=== PATIENT | female | born 1940 | race Caucasian/White ===

== ENCOUNTER 2016-12-16 21:15 | Emergency (ER) | payer OTHER ==
[~2016-12-16 21:15] MED LIST: ADVAIR250 INH; ALLEGRA PO; ALTA2.5 PO; AMLODIPINE PO; ANTIBIOTIC CREAM TOP; ANTIBIOTIC EYE OP; ASA5GR PO; ASAB PO; AUG BETAMET0.053 TOP; B12250T PO; BACDS PO; BENTYL10 PO; BUM1 PO; BUM2 PO; C5 PO; CARASPUDL PO; CYANO1000T PO; DULERA 200 MCG/13 GM INH; EFFIENT10 PO; FESO4 PO; FLONASE NAS; FOLIC PO; GABAPEN; GLUCPH PO; HCTZ25B PO; IBU800 PO; IODOSORB TOP; KDUR20 PO; KLOR CON; KLOR-CON M2020 MEQ PO; L20 PO; L40 PO; LIDODERM T; LIPITOR20 PO; LIPITOR40 PO; LOP50 PO; LOTREL1 CA5 PO; MCZ25 PO; MEDROLPAK4 PO; MOBIC7.5 PO; MULTI-VIT HP PO; NEUR300 PO; NEUR400 PO; NEUR600 PO; NITROSPRAY SL; NITROSTAT0.4 MG SL; Neurontin PO; PLAVIX PO; PLAVIX300 MG PO; PRAV10 PO; PRAVAC PO; PRILO PO; PRILOSEC40 MG PO; PROAIR HFA INH; PROTONIX DR PO; PROTONIX PO; PROVHFA INH; PYR100B PO; REQUIP1 PO; REQUIP3 PO; ROB1T PO; ROPINIROLE; SPIRIVA INH; STOMACH MED PO; T PO; T200 PO; T3 PO; TOPXL50 PO; TRICOR48 PO; UNISOM25 MG OR; VITAMIN B-121000 MC1 SL; VOLTAREN1 % TOP; XARELTO20 MG PO; ZITH250 PO; [UNRECOGNIZED DRUG - CODE] IV
[2016-12-16 21:48] LABS: BASOPHILS 0.3 %; BASOPHILS ABSOLUTE 0.02 10/3/uL (0.0-0.16); EOSINOPHILS 1.4 %; HEMATOCRIT 41.8 % (36.0-48.0); HEMOGLOBIN 13.7 g/dL (12.0-16.0); IMMATURE GRANULOCYTES 0.1 %; IMMATURE GRANULOCYTES ABSOLUTE 0.01 10/3/uL (0.0-0.11); LYMPHOCYTES 33.3 %; LYMPHOCYTES ABSOLUTE 2.39 10/3/uL (0.67-4.30); MEAN CORPUS HGB CONC 32.8 g/dL (32.0-36.0); MEAN CORPUSCULAR HEMOGLOB 30.8 pg (26.0-34.0); MEAN CORPUSCULAR VOLUME 93.9 fL (80-100); MEAN PLATELET VOLUME 9.7 fL (9.2-13.0); MONOCYTES 8.8 %; MONOCYTES ABSOLUTE 0.63 10/3/uL (0.21-1.20); NEUTROPHILS 56.1 %; NEUTROPHILS ABSOLUTE 4.03 10/3/uL (2.02-8.40); PLATELET COUNT 236 10/3/uL (150-400); RBC DISTRIBUTION WIDTH 13.3 % (12.0-16.0); RED CELL COUNT 4.45 10/6/uL (4.0-5.6); WHITE BLOOD CELLS 7.2 10/3/uL (4.5-10.5)
[2016-12-16 21:55] LABS: MANUAL DIFF NO %
[2016-12-16 22:05] LABS: BUN (BLOOD UREA NITROGEN) 16 MG/DL (6-23); CHEST PAIN PROFILE TAT 0 Hrs 23 Mins; CHLORIDE, SERUM 104 MMOL/L (96-112); CO2 (CARBON DIOXIDE) 30 MMOL/L (24-34); CREATININE 0.94 MG/DL (0.55-1.02); GFR AFRICAN AMERICAN 69 ML/MIN (>=60); GFR NON AFRICAN AMERICAN 59 ML/MIN (>=60); POTASSIUM, SERUM 3.3 MMOL/L (3.5-5.3); SODIUM, SERUM 145 MMOL/L (135-148); TROPONIN I <0.02 NG/ML (<0.05)
[2016-12-16 22:06] LABS: GLUCOSE, SERUM 114 MG/DL (60-99)
[2016-12-16 22:07] LABS: INTERNATIONAL NORMAL RATI 1.1 UNITS (-); PARTIAL THROMBO TIME 29.7 SEC (22.5-37.2); PROTIME (NOT ORD) 14.1 SEC (12.0-14.5)
== END 2016-12-16 23:27 | disposition home or self-care (01) ==
LOC: ER 21:15
PROVIDERS: Hospitalist
DX: M25.512 Pain in left shoulder (principal); F41.9 Anxiety disorder, unspecified; I10 Essential (primary) hypertension; Z86.73 Personal history of transient ischemic attack (TIA), and cerebral infarction without residual deficits; Z88.0 Allergy status to penicillin; Z79.899 Other long term (current) drug therapy
CPT/HCPCS: 71010; 80048; 83735; 84484; 85025; 85610; 85730; 93005; 96374; 99284; A9270-GY; J1885

== ENCOUNTER 2016-12-17 14:18 | Emergency (ER) | payer OTHER ==
[2016-12-17 12:10] LABS: BASOPHILS 0.3 %; BASOPHILS ABSOLUTE 0.02 10/3/uL (0.0-0.16); EOSINOPHILS 1.4 %; ER CBC TAT 0 Hrs 05 Mins; HEMATOCRIT 38.8 % (36.0-48.0); HEMOGLOBIN 12.7 g/dL (12.0-16.0); IMMATURE GRANULOCYTES 0.1 %; IMMATURE GRANULOCYTES ABSOLUTE 0.01 10/3/uL (0.0-0.11); LYMPHOCYTES 25.3 %; LYMPHOCYTES ABSOLUTE 1.77 10/3/uL (0.67-4.30); MANUAL DIFF NO %; MEAN CORPUS HGB CONC 32.7 g/dL (32.0-36.0); MEAN CORPUSCULAR HEMOGLOB 30.2 pg (26.0-34.0); MEAN CORPUSCULAR VOLUME 92.2 fL (80-100); MEAN PLATELET VOLUME 9.9 fL (9.2-13.0); MONOCYTES 7.3 %; MONOCYTES ABSOLUTE 0.51 10/3/uL (0.21-1.20); NEUTROPHILS 65.6 %; NEUTROPHILS ABSOLUTE 4.58 10/3/uL (2.02-8.40); PLATELET COUNT 219 10/3/uL (150-400); RBC DISTRIBUTION WIDTH 13.7 % (12.0-16.0); RED CELL COUNT 4.21 10/6/uL (4.0-5.6)
[2016-12-17 12:18] LABS: INTERNATIONAL NORMAL RATI 1.1 UNITS (-); PARTIAL THROMBO TIME 29.8 SEC (22.5-37.2)
[2016-12-17 12:27] LABS: CALCIUM, SERUM 8.6 MG/DL (8.5-10.4); CHEST PAIN PROFILE TAT 0 Hrs 22 Mins; CHLORIDE, SERUM 106 MMOL/L (96-112); CO2 (CARBON DIOXIDE) 31 MMOL/L (24-34); CREATININE 0.89 MG/DL (0.55-1.02); GFR AFRICAN AMERICAN 73 ML/MIN (>=60); GFR NON AFRICAN AMERICAN 63 ML/MIN (>=60); POTASSIUM, SERUM 3.6 MMOL/L (3.5-5.3); SODIUM, SERUM 146 MMOL/L (135-148); TROPONIN I <0.02 NG/ML (<0.05)
[2016-12-17 12:28] LABS: BUN (BLOOD UREA NITROGEN) 24 MG/DL (6-23); GLUCOSE, SERUM 81 MG/DL (60-99)
== END 2016-12-17 18:15 | disposition home or self-care (01) ==
LOC: ER 14:18
PROVIDERS: Emergency Medicine
DX: L30.9 Dermatitis, unspecified (principal); J44.9 Chronic obstructive pulmonary disease, unspecified; I12.9 Hypertensive chronic kidney disease with stage 1 through stage 4 chronic kidney disease, or unspecified chronic kidney disease; E11.21 Type 2 diabetes mellitus with diabetic nephropathy; N18.9 Chronic kidney disease, unspecified; Z88.0 Allergy status to penicillin; Z79.899 Other long term (current) drug therapy
CPT/HCPCS: 71275; 80048; 83735; 84484; 85025; 85610; 85730; 93005; 99285; Q9967

== ENCOUNTER 2017-01-01 16:15 | Emergency (ER) | payer OTHER ==
[2017-01-01 17:30] LABS: BASOPHILS 0.2 %; BASOPHILS ABSOLUTE 0.01 10/3/uL (0.0-0.16); EOSINOPHILS 0.8 %; EOSINOPHILS ABSOLUTE 0.05 10/3/uL (0.0-0.53); ER CBC TAT 0 Hrs 05 Mins; HEMATOCRIT 41.2 % (36.0-48.0); HEMOGLOBIN 13.4 g/dL (12.0-16.0); IMMATURE GRANULOCYTES 0.2 %; IMMATURE GRANULOCYTES ABSOLUTE 0.01 10/3/uL (0.0-0.11); LYMPHOCYTES 32.6 %; LYMPHOCYTES ABSOLUTE 2.04 10/3/uL (0.67-4.30); MANUAL DIFF NO %; MEAN CORPUS HGB CONC 32.5 g/dL (32.0-36.0); MEAN CORPUSCULAR HEMOGLOB 30.2 pg (26.0-34.0); MEAN CORPUSCULAR VOLUME 92.8 fL (80-100); MEAN PLATELET VOLUME 9.3 fL (9.2-13.0); MONOCYTES 10.5 %; MONOCYTES ABSOLUTE 0.66 10/3/uL (0.21-1.20); NEUTROPHILS 55.7 %; NEUTROPHILS ABSOLUTE 3.49 10/3/uL (2.02-8.40); PLATELET COUNT 272 10/3/uL (150-400); RBC DISTRIBUTION WIDTH 13.9 % (12.0-16.0); RED CELL COUNT 4.44 10/6/uL (4.0-5.6); WHITE BLOOD CELLS 6.3 10/3/uL (4.5-10.5)
[2017-01-01 17:42] LABS: INTERNATIONAL NORMAL RATI 1.2 UNITS (-); PROTIME (NOT ORD) 14.7 SEC (12.0-14.5)
[2017-01-01 17:48] LABS: ALBUMIN 3.4 G/DL (3.5-5.0); CHLORIDE, SERUM 102 MMOL/L (96-112); CO2 (CARBON DIOXIDE) 29 MMOL/L (24-34); CREATININE 0.83 MG/DL (0.55-1.02); GFR AFRICAN AMERICAN 80 ML/MIN (>=60); GFR NON AFRICAN AMERICAN 69 ML/MIN (>=60); POTASSIUM, SERUM 3.7 MMOL/L (3.5-5.3); SGOT(AST) 12 U/L (5-40); SGPT(ALT) 21 U/L (5-65); SODIUM, SERUM 141 MMOL/L (135-148); TOTAL BILIRUBIN 0.7 MG/DL (0-1.2); TOTAL PROTEIN 7.2 G/DL (6.0-8.5)
[2017-01-01 17:49] LABS: A/G RATIO 0.9 (0.7-1.9); ALKALINE PHOSPHATASE 90 U/L (45-117); BUN (BLOOD UREA NITROGEN) 15 MG/DL (6-23); GLOBULIN 3.8 G/DL (2.5-4.1); GLUCOSE, SERUM 107 MG/DL (60-99)
== END 2017-01-01 18:30 | disposition home or self-care (01) ==
LOC: ER 16:15
PROVIDERS: Emergency Medicine
DX: S81.802A Unspecified open wound, left lower leg, initial encounter (principal); M13.869 Other specified arthritis, unspecified knee; I10 Essential (primary) hypertension; E11.9 Type 2 diabetes mellitus without complications; D64.9 Anemia, unspecified; Z86.73 Personal history of transient ischemic attack (TIA), and cerebral infarction without residual deficits; Z88.0 Allergy status to penicillin; Z79.899 Other long term (current) drug therapy; X58.XXXA Exposure to other specified factors, initial encounter
CPT/HCPCS: 80053; 85025; 85610; 85730; 99284

== ENCOUNTER 2017-03-11 21:02 | Emergency (ER) | payer OTHER ==
[2017-06-18] MEDS ORDERED: ELIQUIS 5 MG TAB5 MG PO (12:03)
== END 2017-03-11 21:30 | disposition left against medical advice (07) ==
LOC: ER 21:02
DX: R42 Dizziness and giddiness (principal); I10 Essential (primary) hypertension; Z53.21 Procedure and treatment not carried out due to patient leaving prior to being seen by health care provider; Z88.0 Allergy status to penicillin; Z79.899 Other long term (current) drug therapy
CPT/HCPCS: 80048; 81001; 83735; 84484; 85025; 85610; 85730; 93005